=== PATIENT | female | born 1995 | race Caucasian/White ===

== ENCOUNTER 2019-07-01 15:40 | Outpatient (CLI) | payer BC, SELFPAY ==
--- NOTE | ~2019-07-01 | CT_ITS ---
EXAMINATION: CT abdomen pelvis wo con DATE: 07/01/2019 16:18 INDICATION: Left lower quadrant pain TECHNIQUE: Computed tomography (CT) of the abdomen and pelvis was performed without intravenous contr ast. The dose-length product (DLP) was 1272.75 mGy-cm. Automated exposure control and iterative recon struction technique were employed. COMPARISON: None FINDINGS: The lung bases are clear. The heart size is normal. Within the limitations of noncontrast e xamination, the liver, spleen, pancreas, gallbladder, and adrenal glands are normal. The kidneys are unremarkable. No pathologically enlarged abdominal or pelvic lymph nodes are identified. There is no free intraperitoneal gas or evidence of bowel obstruction. Phleboliths are noted in the pelvis. The a ppendix is normal. Ovarian cysts measure up to 3.3 cm. IMPRESSION: 1. No CT correlate for the patient's symptoms. Reviewed, dictated and finalized at location A.
== END 2019-07-01 15:41 | disposition home or self-care (01) ==
PROVIDERS: Visit Provider Family Medicine
DX: R10.32 Left lower quadrant pain (principal)
CPT/HCPCS: 74176

== ENCOUNTER → 2020-05-22 06:58 | Outpatient (CLI) | payer BC, SELFPAY ==
[2020-05-22 19:03] LABS: SARS-CoV-2 RNA PCR Negative
== END ==
PROVIDERS: Visit Provider Family Medicine
DX: J20.9 Acute bronchitis, unspecified (principal)
CPT/HCPCS: C9803; U0003; U0005

== ENCOUNTER → 2020-12-18 03:31 | Outpatient (CLI) | payer BC, SELFPAY ==
[2020-12-18 18:29] LABS: SARS-CoV-2 RNA PCR Negative
== END ==
PROVIDERS: PCP Family Medicine; Visit Provider Family Medicine
DX: J01.00 Acute maxillary sinusitis, unspecified (principal); Z20.822 Contact with and (suspected) exposure to COVID-19
CPT/HCPCS: C9803; U0003; U0005

== ENCOUNTER 2021-01-22 16:06 | Outpatient (CLI) | payer BC, SELFPAY ==
--- NOTE | ~2021-01-22 | US_ITS ---
EXAMINATION: US pelvic complete w TV DATE: 01/22/2021 17:23 INDICATION: Polycystic ovarian syndrome. TECHNIQUE: Multiple transabdominal and transvaginal sonographic images of the pelvis were obtained. COMPARISON: CT abdomen and pelvis 07/01/2019 FINDINGS: TRANSABDOMINAL ULTRASOUND: The uterus measures 7.6 x 5.0 x 3.7 cm. There is no free fluid in the pelvis. TRANSVAGINAL ULTRASOUND: The endometrial complex measures 5 mm in thickness. The right ovary measures 3.1 x 2.4 x 2.5 cm. The left ovary measures 3.4 x 2.0 x 2.6 cm. There is normal vascular flow in the ovaries. IMPRESSION: 1. Normal pelvis. Reviewed, dictated and finalized at location A. 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 Normal pelvis.
== END 2021-01-22 16:07 | disposition home or self-care (01) ==
LOC: ANHIMG 16:13
PROVIDERS: PCP Family Medicine; Visit Provider Nurse Practitioner
DX: E28.2 Polycystic ovarian syndrome (principal)
CPT/HCPCS: 76830; 76856

== ENCOUNTER 2022-05-21 14:45 | Outpatient (RCR) | payer BC, SELFPAY ==
[2022-05-21 14:56] VITALS: BMI 38.8
[2022-05-21 14:57] VITALS: BMI 38.8
== END 2022-07-08 11:24 | disposition home or self-care (01) ==
LOC: ANHDMC 14:45
PROVIDERS: PCP Family Medicine; Visit Provider Family Medicine
DX: E28.2 Polycystic ovarian syndrome (principal); Z71.3 Dietary counseling and surveillance
CPT/HCPCS: 97802

== ENCOUNTER → 2024-05-02 09:50 | Outpatient (CLI) | payer BC, SELFPAY ==
--- NOTE | ~2024-05-02 | XR_ITS ---
Lumbosacral Spine: AP and lateral views Clinical History: Pain Findings: The normal lordotic curve is maintained. The vertebral bodies and posterior elements are i ntact. The intervertebral disc spaces are preserved. The sacroiliac joints are normally outlined. Impression: No significant abnormality. Reviewed, dictated and finalized at [facility]. Impression: No significant abnormality.
--- OUTSIDE RECORDS SUMMARY | 2024-05-02 11:05 | XMS_ITS | Referral Summary ---
Author Organization [facility] Address [address] [address] Care Team Providers Care Skiver Blockers Name Role Phone Unavailable Primary Care Provider Unavailabl e Source Comments [facility],non-owned Affiliates and Associated Physician Practices is amultiple site organization consisting of ambulatory clinics and hospital sitesin [place], [place], [place] and [place]. This disclosure is being madepursuant to the Care Everywhere program and may not contain all information available regarding this patient. Last updated 17.[facility] Allergies Active Allergy Reactions Criticality Noted Date Comments Sulfa Drugs Urticaria Medium 10/15/2020 Medications * Be aware that medications may not be up to date on this document. Alwaysverify current medications with the patient. Medication Sig Dispensed Refills Start Date End Date Status Fluticasone Furoate-Vilanterol (BREO ELLIPTA IN) Active Albuterol Sulfate (PROAIR RESPICLICK IN) Ac tive Montelukast Sodium (SINGULAIR PO) Active fluticasone propionate (FLONASE) 50 MCG/ACT nasal sprayIndications:Acute otitis media, unspecified otitis media type [place] 2 (two) sprays into each nostril once daily 1 Each 10/15/2020 Active Active Problems No known active problems Social History Tobacco Use Types Packs/Day Years Used Date Smoking Tobacco: Every Day Smokeless Tobacco: Never Sex and Gender Information Value Date Recorded Sex Assigned at Not on file Gender Identity Not on file Sexual Orientation Not on file Last Filed Vital Signs Vital Sign Reading Time Taken Comments Blood Pressure 120/70 10/15/2020 12:51 PM CDT Pulse 80 10/15/2020 12:51 PM CDT Temperature 36.8 C (98.2 F) 10/15/2020 12:51 PM CDT Respiratory Rate 16 10/15/2020 12:51 PM CDT Oxygen Saturation 96% 10/15/2020 12:51 PM CDT Inhaled Oxygen Concentration - - Weight 95.3 kg (210 lb) 10/15/2020 12:51 PM CDT Height 152.4 cm (5') 10/15/2020 12:51 PM CDT Body Mass Index 41.01 10/15/2020 12:51 PM CDT Plan of Treatment Not on file
--- OUTSIDE RECORDS SUMMARY | 2024-05-02 11:05 | XMS_ITS | Patient Health Summary ---
Author Organization [facility] Address [address] [place] [address] Care Team Providers Care Parking Enforcer Name Role Phone Unavailable Primary Care Provider Unavailabl e Note from [facility],non-owned Affiliates and Associated Physician Practices is amultiple site organization consisting of ambulatory clinics and hospital sitesin [place], [place], [place] and [place]. This disclosure is being madepursuant to the Care Everywhere program and may not contain all information available regarding this patient. Last updated 17.[facility] Allergies * Sulfa Drugs(Urticaria) -Medium Criticality Medications * Be aware that medications may not be up to date on this document. Alwaysverify current medications with the patient. * Fluticasone Furoate-Vilanterol (BREO ELLIPTA IN) * Albuterol Sulfate (PROAIR RESPICLICK IN) * Montelukast Sodium (SINGULAIR PO) * fluticasone propionate (FLONASE) 50 MCG/ACT nasal spray(Started 10/15/2020) [place] 2 (two) sprays into each nostril once daily Active Problems No known active problems Social [...]
--- OUTSIDE RECORDS SUMMARY | 2024-05-02 11:05 | XMS_ITS | Clinical Summary ---
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 This disclosure is being madepursuant to the Care Everywhere program and may not contain all information available regarding this patient. Last updated 17.[facility] Allergies Active Allergy Reactions Criticality Noted Date [...] sprayIndications:Acute otitis media, unspecified otitis media type [place] 2 (two) sprays into each nostril once [...] 10/15/2020 12:51 PM CDT Plan of Treatment Health Maintenance Due Date Last Done Comments PAP SMEAR 1993 HIV SCREENING 2008 HEPATITIS C SCREENING 05/28/2011 DTAP/TDAP/TD VACCINES (1 - Tdap) 2012 HEPATITIS B VACCINE (1 of 3 - 19+ 3-dose series) 2012 COVID-19 VACCINE ( - 2023-2 5 season) 2023 INFLUENZA VACCINE (#1) 2023 DEPRESSION SCREENING 02/17/2024 ZOSTER VACCINE (1 of 2) 06/02/2043 HIB VACCINE Aged Out No longer eligi ble based on patient's age to complete this topic HPV VACCINE Aged Out No longer eligi ble based on patient's age to complete this topic MENINGOCOCCAL (Group B) VACC INE SHARED DECISION-MAKING Aged Out No longer eligibl e based on patient's age to complete this topic MENINGOCOCCAL GROUPS A/C/Y/W VACCINE Aged Out No longer eligible b ased on patient's age to complete this topic PNEUMOCOCCAL VACCINE Aged Out No long er eligible based on patient's age to complete this topic
== END ==
LOC: EXPTRAD 09:52
PROVIDERS: PCP Nurse Practitioner Family; Visit Provider Nurse Practitioner Family
DX: M54.50 Low back pain, unspecified (principal)
CPT/HCPCS: 72100